=== PATIENT | female | born 1950 | race Caucasian/White ===

== ENCOUNTER 2016-10-25 07:34 | Emergency (ER) | payer MEDICARE, OTHER ==
[~2016-10-25] VITALS: Ht 165.1 cm; Wt 73.8 kg
[~2016-10-25 07:34] MED LIST: ALLEGRA180 MG; ALLERGY MED; ARIMIDEX1 MG; AVELOX400 MG PO; B COMPLEX1 EACH PO; CALCIUM 600 + D1 TAB; CALCIUM 600 +1 EAC2 PO; CLINDAMYCIN HC300 M1 PO; CLINDAMYCIN HC300 MG PO; CRESTOR10 MG PO; CYCLOBENZAPRINE10 M1 PO; DIABETA5 MG PO; FARXIGA5 M1 PO; FLUOXETINE HCL20 M; FLUOXETINE HCL20 M2 PO; FOLIC ACID; GLUCOPHAGE500 M3 PO; GLYBURID METFOR; INDERAL10 MG; INSULIN; LEVAQUIN500 MG PO; LEVEMIR100 U/ML SQ; LEVEMIR100 UNITS/ SC; LIPITOR40 MG; LISINOPRIL10 M1 PO; LISINOPRIL10 MG; LISINOPRIL10 MG PO; METFORMIN HCL500 MG PO; NASAL DECONGESTANT; NASOCORT; NORCO 5-325 TA1 EACH PO; NORCO 5/325 TAB1 TAB PO; OMEGA 31 CAP; PAIN RELIEF; PROTONIX20 MG; RHINOCORT AQUA8.6 GM; TRAVATAN 0.0042.5 ML OP; TRAVATAN Z5 M1 BOTH EYES; TRAVATAN5 ML; TYLENOL325 M2 PO; VITAMIN A; VITAMIN B 6; VITAMIN D400 UNI1 PO; VITAMIN D400 UNIT; VITAMIN E; ZOCOR10 MG; [UNRECOGNIZED DRUG - OTHER]; [UNRECOGNIZED DRUG - OTHER]; [UNRECOGNIZED DRUG - OTHER]
[2016-10-25] MEDS ORDERED: LEVOCETIRIZINE D5 M1 PO (07:43)
[2016-10-25] MEDS ORDERED: LOTRIMIN AF12 GM TP (07:57)
== END 2016-10-25 08:03 ==
LOC: EDMED 07:34
DX: R21 Rash and other nonspecific skin eruption (principal); E11.9 Type 2 diabetes mellitus without complications; Z79.84 Long term (current) use of oral hypoglycemic drugs; Z79.4 Long term (current) use of insulin